=== PATIENT | female | born 1990 | race Asian ===

== ENCOUNTER 2018-05-25 09:54 | Emergency (ER) | payer OTHER ==
[2018-05-25 10:02] VITALS: BP 110/70
--- NOTE | 2018-05-25 10:32 | UC ---
Lower Extremity/Ankle HPI - HPI Summary HPI Summary: 28 y/o female presents to the urgent care c/o left ankle pain s/p twisting her ankle while stepping a pebble over last night. Pt states swelling and pain upon standing and walking. Pain is 8/10 radiating to the posterior lower leg. she applied ice and has taking Tylenol PO to alleviate symptoms. Pt took last dose this morning at 0700am. Pt denies numbness and tingling sensation over her left ankle, SOB, chest pain, abdominal pain, N/V/D,LMP:05/19/2018 w/ regular menstrual cycles. - History of Current Complaint Chief Complaint: UCLowerExtremity Stated Complaint: LEFT ANKLE INJURY Time Seen by Provider: 05/25/18 10:27 Hx Obtained From: Patient Hx Last Menstrual Period: 05/19/18 ?: No Onset/Duration: Gradual Onset, Lasting Days - 1 day, Still Present, Worse Since - today Severity Initially: Moderate Severity Currently: Moderate Pain Intensity: 8 Pain Scale Used: 0-10 Numeric Aggravating Factor(s): Standing, Ambulation Alleviating Factor(s): Rest Able to Bear Weight: Yes - Risk Factors Gout Risk Factors: Negative DVT Risk Factors: Negative Septic Arthritis Risk Factor: Negative - Allergies/Home Medications Allergies/Adverse Reactions: Allergies Allergy/AdvReac Type Severity Reaction Status Date / Time No Known Allergies Allergy Verified 05/25/18 10:02 PMH/Surg Hx/FS Hx/Imm Hx Previously Healthy: Yes GI/ History: Gastroesophageal Reflux Other History Of: Negative For: Anticoagulant Therapy - Surgical History Surgical History: Yes Surgery Procedure, Year, and Place: lump removed L breast (benign) 2008 - Family History Known Family History: Positive: Cardiac Disease, Hypertension Negative: Diabetes - Social History Occupation: Employed Full-time Lives: With Family Alcohol Use: Occasionally Substance Use Type: None Smoking Status (MU): Never Smoked Tobacco Have You Smoked in the Last Year: No - Immunization History Most Recent Influenza Vaccination: Not utd Most Recent Tetanus Shot: unk Most Recent Pneumonia Vaccination: none Review of Systems Constitutional: Negative Skin: Negative Eyes: Negative ENT: Negative Respiratory: Negative Cardiovascular: Negative Gastrointestinal: Negative Genitourinary: Negative Motor: Negative Neurovascular: Negative Musculoskeletal: Decreased ROM - left ankle, Other: - left ankle pain and swelling s/p injury Neurological: Negative Psychological: Negative Is Patient Immunocompromised?: No All Other Systems Reviewed And Are Negative: Yes Physical Exam - Summary Physical Exam Summary: Vital Signs Reviewed: Yes General: well developed, well nourished female, sitting in the examining table w /o any apparent distress Eyes: Positive: Conjunctiva Clear - PERRLA, EOMI, ENT: Positive: Normal ENT inspection, Hearing grossly normal, Pharynx normal, TMs normal Neck: Positive: Supple, Nontender, No Lymphadenopathy Respiratory: Positive: Chest non-tender, Lungs clear, Normal breath sounds, No respiratory distress Cardiovascular: Positive: RRR, No Murmur, Pulses Normal, Brisk Capillary Refill Abdomen Description: Positive: Nontender, No Organomegaly, Soft. Negative: CVA Tenderness (R), CVA Tenderness (L) Bowel Sounds: Positive: Present Musculoskeletal: - Ankle: Pt is able to bear weight and ambulate w/ limping. The L ankle is without obvious asymmetry or deformity when compared to the R ankle. Decreased ROM due to pain. Moderate swelling at the lateral malleolus, with tenderness to palpation. No ecchymosis or bruising observed. No tenderness of medial malleolus , no swelling observed. Talar tilt test is negative for ligament laxity to valgus or varus stress. Negative anterior drawer. Peroneal nerve is intact with strong eversion and plantar flexion. Positive sensation over the LF foot and LF ankle, positive pulses, capillary refill intact Neurological Exam: Normal Psychological Exam: Normal Skin: warm and dry Triage Information Reviewed: Yes Vital Signs: Initial Vital Signs Temp 97.0 F 05/25/18 09:59 Pulse 90 05/25/18 09:59 Resp 18 05/25/18 09:59 BP 110/70 05/25/18 09:59 Pulse Ox 99 05/25/18 09:59 Lower Extremity Course/Dx - Course Course Of Treatment: 28 y/o female presents to the urgent care c/o left ankle pain s/p twisting her ankle while stepping a pebble over last night. Pt states swelling and pain upon standing and walking. Pain is 8/10 radiating to the posterior lower leg. she applied ice and has taking Tylenol PO to alleviate symptoms. Pt took last dose this morning at 0700am. Pt denies numbness and tingling sensation over her left ankle, SOB, chest pain, abdominal pain, N/V/D, LMP:05/19/2018 w/ regular menstrual cycles. Hx obtained. LF ankle X-ray ordered , Impression: Soft tissue swelling, no acute fracture. Pt most likely with a LF ankle Sprain. Pt given Ibuprfe PO for pain. Pt tolerated well medication and pain decrease. Pt immobilized with gel ankle splint to , given crutches to avoid weight bearing, Rx Ibuprofen PO to decrease swelling and pain. Pt advised RICE, take Ibuprofen PO for pain and to f/u with PCP on orthopedic Dr Stevnes in 1 week if not improvement of symptoms for further treatment. Parents and Pt understood and agreed w/ plan of care and left the clinic ambulating w/ the help of crutches. - Differential Dx/Diagnosis Differential Diagnosis/HQI/PQRI: Dislocation, Fracture (Closed), Sprain, Strain , Tendonitis Provider Diagnoses: 1- left ankle pain s/p injury. 2-Left ankle sprain Discharge - Sign-Out/Discharge Documenting (check all that apply): Discharge/Admit/Transfer - D/c home - Discharge Plan Condition: Stable Disposition: HOME Prescriptions: Ibuprofen TAB* [Motrin TAB* 600 MG] 600 mg PO Q6H PRN #30 tab PRN Reason: Pain Patient Education Materials: Ankle Sprain (ED) Referrals: Ezequiel Pardo MD [Primary Care Provider] - 1 Week Miriam Stevens MD [Medical Doctor] - 1 Week Additional Instructions: 1-Please take medications as directed to alleviate pain and swelling. 2-Please apply ice, keep your ankle immobilized with the splint. Avoid weight bearing using the crutches 3- Please f/u with Orthopedic Dr Stevens or your PCP in 1 week is not improvement of symptoms for further evaluation and treatment. - Billing Disposition and Condition Condition: STABLE Disposition: Home
[2018-05-25] MEDS ORDERED: Ibuprofen TAB* 600 MG PO ONE (10:39)
--- NOTE | 2018-05-25 10:48 | RAD ---
Indication: Left ankle injury. 3 views of left ankle demonstrate soft tissue swelling laterally. No fracture is noted. Ankle mortise is intact. The base of the fifth metatarsal is unremarkable. IMPRESSION: Soft tissue swelling without evidence of fracture.
== END 2018-05-25 11:09 | disposition home or self-care (01) ==
LOC: UCEAST 09:54
DX: S93.402A Sprain of unspecified ligament of left ankle, initial encounter (principal); X50.1XXA Overexertion from prolonged static or awkward postures, initial encounter; Y93.9 Activity, unspecified; Y99.9 Unspecified external cause status; K21.9 Gastro-esophageal reflux disease without esophagitis
CPT/HCPCS: 99213; A9270-GY; G0463

== ENCOUNTER → 2019-09-17 05:32 | Day surgery (SDC) | payer OTHER ==
[~2019-09-17 05:32] MED LIST: Buffered Lidocaine 1% SYRIN* 1 ML/SYRINGE INTRADERM ONE; Bupivacaine 0.25% SDV PF* 10 ML VIAL INJ ONE; Bupivacaine 0.5%* 50 ML MDV VIAL ONE; Dexamethasone IV* 4 MG/ML 1 ML (4 MG) IV SLOW PU ONE; Dexamethasone IV* 4 MG/ML 1 ML (4 MG) ONE; DiMENhydriNATE IV* 50 MG/ML VIAL IV PUSH PRN; Famotidine IV* 10 MG/ML 2 ML (20 mg) IV ONE; Famotidine IV* 10 MG/ML 2 ML (20 mg) ONE; HYDROmorphone INJ1* 1 MG/ML SYRINGE IV PRN; Ketorolac INJ* 30 MG/ML 1 ML VIAL ONE; Lactated Ringers 1000 ML Bag* 1,000 ML IV SCH; Lidocaine 2% PF * 5 ML VIAL ONE; Midazolam* 1 MG/ML 5 ML VIAL (5 MG) ONE; Naloxone* 0.4 MG/ML 1 ML VIAL IV PRN; Ondansetron INJ* 2 MG/ML VIAL IV PRN; Ondansetron INJ* 2 MG/ML VIAL ONE; Propofol* 10 MG/ML 20 ML BTL ONE; Scopolamine 1.5 mg* PATCH ONE; Scopolamine 1.5 mg* PATCH TRANSDERM SCH; ceFAZolin 2 GM PREMIX in ORs 2 GM/50 ML BAG ONE; fentaNYL* 50 MCG/ML 2 ML VIAL (100 MCG VIAL) ONE; fentaNYL* 50 MCG/ML 5 ML VIAL (250 MCG VIAL) ONE; oxyCODONE/Acetamin 5/325 MG* TAB ONE; oxyCODONE/Acetamin 5/325 MG* TAB PO PRN
[2019-09-17] MEDS: fentaNYL* 50 MCG/ML 2 ML VIAL (100 MCG VIAL) IV PRN ×2 (10:35→10:41)
[2019-09-17 11:38] VITALS: BP 120/72
--- NOTE | 2019-09-17 14:32 | OP ---
Operative Report - Blank - Operative Report Date of Operation: 09/17/19 Note: PATIENT: Cassandra Babb DATE OF : 1990 DATE OF SURGERY: 09/17/2019 SURGEON: Marquez Kee MD MILL OPERATOR: LENARD Pichardo, whos assistance was necessary for positioning, retraction, help with instrumentation, and closure. ANESTHESIOLOGIST: Dr. 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 OPERATION: 1. Left foot Kidner procedure with excision of accessory navicular with advancement of the posterior tibial tendon. 2. Left ankle modified Brostrom procedure lateral ligament reconstruction. ANESTHESIA: General LMA IMPLANTS: Arthrex Fibertak suture anchor x3 TOURNIQUET TIME: One hour, with a well-padded thigh tourniquet at 250 mmHg SPECIMENS: Accessory navicular bone to pathology ESTIMATED BLOOD LOSS: Minimal COMPLICATIONS: none STATUS: Stable from the operating room to the recovery room and then home. INDICATIONS FOR PROCEDURE: Cassandra has had persistent medial sided pain and recurrent ankle instability events. She has tried extensive nonoperative treatment without benefit. Both operative and non operative treatment alternatives were reviewed. Further, the nature and risks of surgery were reviewed in careful detail, in the office as well as the pre-operative holding area. Our discussions regarding the risks of surgery included, but were not limited to, infection, wound problems, nerve injury, neuroma, RSD, persistent symptoms, recurrent instability, blood clot, failure of the surgery, tendon rupture, persistent symptoms, and even the remote chance of catastrophic complication. DESCRIPTION OF PROCEDURE: The patient was seen in the preoperative holding unit and informed written consent was obtained. The appropriate extremity was marked. The patient was then brought to the operating room and carefully positioned on the operating room table. Anesthesia was induced. All bony prominences were padded with great care. A well-padded thigh tourniquet was placed. A chlorhexidine based pre- scrub was performed followed by a chloraprep prep and drape in standard sterile fashion. A surgical safety pause was then conducted in which we confirmed the appropriate patient, extremity, planned procedure, availability of equipment, indication and administration of prophylactic antibiotics, and DVT prophylaxis in the form of a compression boot on the non-surgical extremity. We began with Esmarch exsanguination of the limb and inflated the tourniquet. A medial longitudinal incision was made centered at the medial prominence of the navicular. Careful blunt dissection was taken down to the layer of the posterior tibial tendon and periosteum. This layer was defined. An incision was made at the superior edge of the posterior tibial tendon and this was reflected in a subperiosteal manner plantarly. The periosteum superiorly was also reflected in a subperiosteal manner so as to expose the entire medial navicular. The accessory navicular was apparent that fluoroscopy was also used to confirm. A small straight osteotome was then used to excise the accessory navicular as well as the cartilaginous prominence medially. The edges were smoothed with a Rongeur and then the exposed cancellous bed was smooth with a rasp. No prominence was felt directly and also the soft tissues were provisionally tacked closed, and no prominence was felt on the skin. Fluoroscopy was then used to confirm adequate resection. Copious irrigation was then performed. An Arthrex suturetak was then placed under fluoroscopic guidance into the navicular. This had excellent purchase and I was able to lift the foot off the bed by pulling on the sutures. These sutures were then placed through the posterior tibial tendon in a horizontal mattress fashion so as to advance the posterior tibial tendon to the new medial edge of the navicular bone. A #1 Vicryl suture was then used to perform a [id number] repair of the periosteum and posterior tibial tendon. At this point, we irrigated copiously and then closed in layers meticulously utilizing 3-0 Monocryl and 3-0 Nylon for the skin. I then turned my attention to the lateral ankle. I made a longitudinal incision overlying the distal fibula. I dissected down to the layer of the periosteum. I then dissected anteriorly to expose the anterolateral ankle ligaments. We protected the superficial peroneal nerve at all times, which was not visualized within our field. Once we had adequately exposed a pocket anterior to the ligaments, we sharply took the ligaments down off of the anterior and distal aspect of the fibula using a 15 blade. The inferior extensor retinaculum was exposed and protected for subsequent repair later in the procedure. I then utilized a rongeur to make a trough along the fibula to receive the reconstructed ligaments. I placed 2 Arthrex fibertak suture anchors into the distal fibula. The fiber tape was passed through the lateral ankle ligaments in a horizontal mattress fashion. These sutures were all passed with great care taken to appropriately tension both the ATFL as well as the CFL in order to get a nice tight repair. We held the ankle in a dorsiflexed and everted position while the ligaments and sutures were tied down. These held the ankle in a much improved position with excellent tension on the ligaments. We then utilized a rotational flap from the periosteum overlying the distal fibula to augment the repair. This was sewn down using a horizontal mattress stich overlying the ATFL. We further augmented the repair by bringing the inferior extensor retinaculum up to the fibula. There was a much improved anterior drawer at this point as compared to pre-operatively. We then irrigated the wound copiously again. The wound was closed in a layered fashion utilizing 3-0 Monocryl and 3-0 nylon. A sterile dressing was then applied and the ankle was splinted in a neutral position. All needle and sponge counts were correct at the end of the case. The patient was awakened from anesthesia and transferred to the recovery room in stable condition. There were no complications. ATTESTATION: I attest I was present and scrubbed and performed the critical portions of the procedure myself. POSTOPERATIVE PLAN: Follow up will be in 2 weeks for likely suture removal and transition to a [id number] short leg cast. We will plan on 6 weeks of [id number] and immobilization.
== END | disposition home or self-care (01) ==
LOC: OR 05:32
PROVIDERS: ATTEND Orthopaedic Surgery
DX: M25.372 Other instability, left ankle (principal); Q79.8 Other congenital malformations of musculoskeletal system
CPT/HCPCS: 76000; 81025; 88304; 88311; A9270-GY; C1713; J0690; J1100; J1885; J2250; J2405; J2704; J3010; J3490

== ENCOUNTER 2022-08-27 08:43 | Inpatient (IN) ==
[2022-08-27] MEDS ORDERED: miSOPROStol 100 mcg TAB VAGINAL ONE (09:10)
[2022-08-27] MEDS ORDERED: Buffered Lidocaine 1% SYRIN 1 ml INTRADERM ONE (09:10)
[2022-08-27] MEDS ORDERED: Lactated Ringers 1000 ml BAG 1,000 ML IV ONE ×2 (09:10→21:11)
[2022-08-27] MEDS ORDERED: Lactated Ringers 1000 ml BAG 1,000 ML IV SCH ×2 (10:00→22:00)
[2022-08-27 10:22] LABS: Urine Benzodiazepine Screen None Detected (None Detect); Urine Cannabinoids Screen None Detected (None Detect); Urine Opiates Screen None Detected (None Detect)
[2022-08-27 15:45] LABS: ABS Eosinophils 0.1 10^3/ul (0-0.6); ABS Lymphocytes 1.5 10^3/ul (1.0-4.8); ABS Monocytes 0.6 10^3/ul (0-0.8); ABS Neutrophils 4.8 10^3/ul (1.5-7.7); Eosinophil % 1.2 %; Hematocrit 34 % (35-47); Hemoglobin 11.8 g/dL (12.0-16.0); Lymphocyte % 21.5 %; Mean Corpuscular HGB Conc 35 g/dL (31-36); Mean Corpuscular Hemoglobin 32 pg (27-31); Mean Corpuscular Volume 94 fL (80-97); Mean Platelet Volume 8.1 fL (7.4-10.4); Platelet Count 204 10^3/uL (150-450); Red Blood Count 3.64 10^6 /uL (3.70-4.87); Red Cell Distribution Width 13 % (10-15)
[2022-08-27] MEDS ORDERED: Oxytocin in LR 20,000 MILLI.UNIT/1,000 ML BAG IV SCH (17:00)
[2022-08-27] MEDS ORDERED: OBEPIDURAL (200 ML) 200 ML EPIDURAL ONE (20:08)
[2022-08-27] MEDS ORDERED: Lidocaine 2% w/ EPI 1:200,000 MPF 20 ML SDV VIAL ONE (20:08)
[2022-08-27] MEDS ORDERED: Sodium Citrate/Citric Acid LIQ 15 ML UDC PO PRN (21:11)
[2022-08-27] MEDS ORDERED: Phenylephrine 40 mcg/mL 10mL (400mcg) SYRINGE IV PUSH PRN ×2 (21:11)
[2022-08-27 21:33] LABS: Urine Appearance Clear; Urine Bilirubin Negative (Negative); Urine Blood 1+ (Negative); Urine Color Straw; Urine Glucose Negative (Negative); Urine Ketones 1+ (Negative); Urine Nitrite Negative (Negative); Urine Protein Negative (Negative); Urine Specific Gravity 1.008 (1.002-1.030); Urine Urobilinogen Negative (Negative)
[2022-08-27 21:51] LABS: Urine Bacteria Absent (Absent); Urine Red Blood Cell Trace(0-2/hpf) (Absent); Urine White Blood Cell Trace(0-5/hpf) (Absent)
[2022-08-27] MEDS ORDERED: OBEPIDURAL (200 ML) 200 ML EPIDURAL SCH (22:00)
[2022-08-28] MEDS ORDERED: Dibucaine 1% OINT 28.35 GM TUBE PR PRN (01:38)
[2022-08-28] MEDS ORDERED: Witch Hazel PAD JAR TOPICAL PRN (01:38)
[2022-08-28] MEDS ORDERED: Glycerin ADULT 2.4 gm SUPP PR PRN (01:38)
[2022-08-28] MEDS ORDERED: Oxytocin in LR 20,000 MILLI.UNIT/1,000 ML BAG IV SCH (01:45)
[2022-08-28] MEDS ORDERED: Lactated Ringers 1000 ml BAG 1,000 ML IV SCH (02:00)
[2022-08-28] MEDS ORDERED: Tetan/Diph/Pertus SYR(Tdap) 0.5 ML SYR(BOOSTRIX) use SYR contains LATEX IM ONE (09:00)
[2022-08-28] MEDS ORDERED: Varicella Virus Vaccine Live 0.5 ML VIAL SUBCUT ONE (09:00)
[2022-08-29 06:24] LABS: ABS Eosinophils 0.2 10^3/ul (0-0.6); ABS Lymphocytes 2.3 10^3/ul (1.0-4.8); ABS Monocytes 0.6 10^3/ul (0-0.8); ABS Neutrophils 4.4 10^3/ul (1.5-7.7); Hematocrit 31 % (35-47); Hemoglobin 10.7 g/dL (12.0-16.0); Lymphocyte % 30.7 %; Mean Corpuscular HGB Conc 34 g/dL (31-36); Mean Corpuscular Hemoglobin 32 pg (27-31); Mean Corpuscular Volume 94 fL (80-97); Mean Platelet Volume 7.8 fL (7.4-10.4); Nucleated Red Blood Cells % 0.2; Platelet Count 179 10^3/uL (150-450); Red Blood Count 3.31 10^6 /uL (3.70-4.87); Red Cell Distribution Width 14 % (10-15); White Blood Count 7.5 10^3/uL (3.5-10.8)
[2022-08-29] MEDS ORDERED: Influenza vaccine *QUAD* *2022-23* 0.5 ML SYRINGE IM ONE (09:00)
[2022-08-30 08:10] VITALS: BP 113/68
== END 2022-08-30 16:36 | disposition home or self-care (01) | DRG 805 ==
LOC: MCHOBOUT 08:43 → MCHOB 09:14
PROVIDERS: ADMIT Obstetrics & Gynecology; ATTEND Obstetrics & Gynecology